=== PATIENT | male | born 1990 | race African-American/Black ===

== ENCOUNTER 2018-10-22 10:25 | Emergency (ER) | payer OTHER ==
[2018-10-22] MEDS ORDERED: DEXAMETHASONE 10 MG/ML VIAL PO STA (12:03)
--- NOTE | 2018-10-22 12:06 | ED Physician Documentation ---
PD HPI BACK PAIN - Stated complaint Stated Complaint: PAIN IN UPPER BUTTOX - Chief complaint Chief Complaint: Back Pain - History obtained from History obtained from: Patient - History of Present Illness Timing - onset: How many days ago (2) Timing - duration: Days (2) Timing - details: Gradual onset, Still present Location: Lower, Right Quality: Pain, Spasm, Sharp, Similar to prior episodes Associated symptoms: No: Fever, Weakness, Numbness, Incontinent of urine, Unable to urinate, Hematuria Improves with: Rest, Ice, Position Worsened by: Movement Contributing factors: Other (laying down causes the most pain) Similar symptoms before: Diagnosis (sciatica) Recently seen: Not recently seen - Additional information Additional information: 28-year-old male has developed pain in his right buttock that radiates down his right leg. He reports that he has had this repeatedly over the last 2 years and episodes last about a week. He does not have any numbness distally he denies any numbness in the perineum he denies any difficulty with urination or bowel. He does not know of a loading injury prior to this and states that his pain is worse when he is laying down. Review of Systems Constitutional: denies: Fever, Chills Eyes: denies: Decreased vision Ears: denies: Ear pain Nose: denies: Congestion Throat: denies: Sore throat Cardiac: denies: Chest pain / pressure, Palpitations Respiratory: denies: Dyspnea, Cough GI: denies: Abdominal Pain, Nausea, Vomiting : denies: Dysuria, Frequency Skin: denies: Rash Musculoskeletal: reports: Extremity pain. denies: Neck pain, Back pain Neurologic: denies: Generalized weakness, Focal weakness, Numbness PD PAST MEDICAL HISTORY - Past Surgical History Past Surgical History: No - Present Medications Home Medications: Ambulatory Orders Medication Instructions Recorded Confirmed Cyclobenzaprine [Flexeril] 10 mg PO TID PRN #20 tablet 10/22/18 Hydrocodone/Acetaminophen 1 - 2 each PO Q6H PRN #14 tablet 10/22/18 [Hydrocodon-Acetaminophen 5-325] - Allergies Allergies/Adverse Reactions: Allergies Allergy/AdvReac Type Severity Reaction Status Date / Time No Known Drug Allergies Allergy Verified 10/22/18 10:35 - Social History Does the pt smoke?: No Smoking Status: Never smoker Does the pt drink ETOH?: No Does the pt have substance abuse?: No PD ED PE NORMAL - Vitals Vital signs reviewed: Yes (normal ) - General General: Alert and oriented X 3, No acute distress, Well developed/nourished - HEENT HEENT: Atraumatic, PERRL, EOMI - Respiratory Respiratory: No respiratory distress - Derm Derm: Normal color, Warm and dry, No rash - Extremities Extremities: No deformity, No edema, Other (There is mild tenderness to the right sciatic notch ) - Neuro Neuro: Alert and oriented X 3, circuit walker 2-12 intact, No motor deficit, No sensory deficit, Normal speech Eye Opening: Spontaneous Motor: Obeys Commands Verbal: Oriented GCS Score: 15 - Psych Psych: Normal mood, Normal affect Results - Vitals Vitals: Vital Signs - 24 hr 10/22/18 10/22/18 10:33 10:35 Temperature 37.0 C Heart Rate 69 58 L Respiratory 18 Rate Blood Pressure 147/77 H O2 Saturation 98 PD MEDICAL DECISION MAKING - ED course Complexity details: considered differential, d/w patient ED course: 28-year-old male with pain in the sciatic notch and pain radiating down his right leg has had this in episodes previously today he is administered dexamethasone 10 mg orally and we will place him on some pain medication muscle relaxant. Departure - Departure Disposition: 01 Home, Self Care Clinical Impression: Sciatica Qualifiers: Laterality: right Qualified Code(s): M54.31 - Sciatica, right side Condition: Stable Instructions: ED Sciatica Follow-Up: FRAN Jamil [Provider Group] Prescriptions: Cyclobenzaprine [Flexeril] 10 mg PO TID PRN #20 tablet PRN Reason: Spasms Hydrocodone/Acetaminophen [Hydrocodon-Acetaminophen 5-325] 1 - 2 each PO Q6H PRN #14 tablet PRN Reason: pain Forms: Activity restrictions
[2018-10-22 12:26] VITALS: BP 140/78
== END 2018-10-22 12:25 | disposition home or self-care (01) ==
LOC: ED 10:25
DX: M54.31 Sciatica, right side (principal)
CPT/HCPCS: 99283